=== PATIENT | female | born 1990 | race Caucasian/White ===

== ENCOUNTER 2019-03-28 13:58 | Emergency (ER) | payer MEDICAID ==
[~2019-03-28] VITALS: Ht 154.9 cm; Wt 114.8 kg
[2019-03-28 14:00] VITALS: BP 118/68
--- NOTE | 2019-03-28 14:09 | NUR ---
Patient ambulated to bed 10 with family. RN evaluating patient at bedside.
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
--- NOTE | 2019-03-28 14:34 | NUR ---
BRANDON BLOCK AT BEDSIDE
[2019-03-28] MEDS ORDERED: KETOROLAC 30 MG/ML VIAL IM ONE (14:40)
[2019-03-28 15:06] VITALS: BP 123/67
--- NOTE | 2019-03-28 15:06 | NUR ---
Patient discharged with v/s stable. Written and verbal after care instructions given and explained. Patient alert, oriented and verbalized understanding of instructions. Ambulatory with steady gait. All questions addressed prior to discharge. ID band removed. Patient advised to follow up with PMD. Rx of IBUPROFEN given. Patient educated on indication of medication including possible reaction and side effects. Opportunity to ask questions provided and answered. PT INSTRUCTED TO NOT EXCEED MAXIMUM DOSE OF IBUFROFEN WHILE
== END 2019-03-28 15:06 | disposition home or self-care (01) ==
LOC: MED 13:58
DX: S46.912A Strain of unspecified muscle, fascia and tendon at shoulder and upper arm level, left arm, initial encounter (principal); E11.9 Type 2 diabetes mellitus without complications; V43.52XA Car driver injured in collision with other type car in traffic accident, initial encounter; Y93.89 Activity, other specified; Y92.488 Other paved roadways as the place of occurrence of the external cause; Y99.8 Other external cause status
CPT/HCPCS: 81002; 81025; 96372; 99283; J1885

== ENCOUNTER 2020-10-20 13:38 | Emergency (ER) | payer MEDICAID ==
[~2020-10-20] VITALS: Ht 154.9 cm; Wt 117.9 kg
[2020-10-20 13:41] VITALS: BP 150/73
[2020-10-20] MEDS ORDERED: LIDO1ADH47 TP (14:03)
[2020-10-20] MEDS ORDERED: NAPR-54 PO (14:03)
[2020-10-20] MEDS ORDERED: METH750T5 PO (14:03)
[2020-10-20] MEDS ORDERED: KETOROLAC 30 MG/ML VIAL IM ONE (14:05)
[2020-10-20 14:39] VITALS: BP 150/73
== END 2020-10-20 14:40 | disposition home or self-care (01) ==
LOC: MED 13:38
DX: S39.012A Strain of muscle, fascia and tendon of lower back, initial encounter (principal); E11.9 Type 2 diabetes mellitus without complications; Z98.890 Other specified postprocedural states; Z79.899 Other long term (current) drug therapy; X50.0XXA Overexertion from strenuous movement or load, initial encounter; Y93.89 Activity, other specified; Y92.89 Other specified places as the place of occurrence of the external cause; Y99.8 Other external cause status
CPT/HCPCS: 81002; 81025; 96372; 99283; J1885